=== PATIENT | female | born 1935 | race Caucasian/White ===

== ENCOUNTER 2018-09-26 14:48 | Emergency (ER) | payer MEDICARE, BC ==
[~2018-09-26] VITALS: Ht 154.9 cm; Wt 63.6 kg
[2018-09-26] MEDS ORDERED: MAXZIDE-2537.5 MG/TA PO (15:16)
[2018-09-26] MEDS ORDERED: ATENOLOL50 MG PO (15:16)
[2018-09-26] MEDS ORDERED: LISINOPRIL20 MG PO (15:16)
[2018-09-26] MEDS ORDERED: AMITRIPTYLIN25 MG PO (15:17)
[2018-09-26] MEDS ORDERED: ASPIRIN81 MG PO (15:17)
[2018-09-26] MEDS ORDERED: AMLODIPINE5 MG PO (15:17)
[2018-09-26 15:39] LABS: HEMATOCRIT 39.6 % (37.0-47.0); HEMOGLOBIN 14.1 g/dl (12.0-16.0); IMMATURE GRANULOCYTES 0.5 % (0.0-5.0); MEAN CORPUSCULAR HGB 31.3 pG CALC (26.0-32.0); MEAN CORPUSCULAR HGB CONC 35.6 g/L CALC (32.0-36.0); NEUT# 16.23 thou/uL (2.00-7.15); RED BLOOD COUNT 4.5 mill/uL (4.20-5.60); RED CELL DISTRI WIDTH 11.9 % (11.5-15.5)
[2018-09-26 15:58] LABS: PROTHROMBIN TIME 10.1 SECONDS (9.0-12.5)
[2018-09-26 16:44] LABS: ALBUMIN 4.2 g/dL (3.2-5.0); ALKALINE PHOSPHATASE 69 u/l (38-126); ANION GAP 16 (6-22 (CALC)); BILIRUBIN, TOTAL 0.4 mg/dL (0.0-1.4); BUN 14 mg/dL (8-23); BUN/CREATININE RATIO 25 (12-20 (CALC)); CARBON DIOXIDE 28 mmol/l (22-30); CHLORIDE 90 mmol/l (95-108); CREATININE 0.6 mg/dL (0.5-1.0); GFR > 60 ML/MIN (>=60 (CALC)); GFR FOR AFR.AMER. > 60 ML/MIN (>=60 (CALC)); POTASSIUM 3.1 mmol/l (3.5-5.1); SGOT/AST 29 u/l (9-36); SODIUM 131 mmol/l (137-146); TOTAL PROTEIN 6.8 g/dL (6.3-8.2)
[2018-09-26 16:46] LABS: URINE BILIRUBIN - DIPSTICK NEGATIVE (NEGATIVE); URINE BLOOD DIPSTICK MODERATE (NEGATIVE); URINE COLOR YELLOW; URINE GLUCOSE - DIPSTICK NEGATIVE (NEGATIVE); URINE KETONE NEGATIVE (NEGATIVE); URINE LEUK ESTERASE TRACE (NEGATIVE); URINE NITRITE - DIPSTICK NEGATIVE (Negative); URINE PROTEIN - DIPSTICK NEGATIVE (NEG-TRACE); URINE UROBILINOGEN - DIPSTICK 0.2 E.U./dL (0.2)
[2018-09-26 16:49] LABS: URINE CLARITY CLEAR
[2018-09-26 16:56] LABS: URINE SQUAMOUS EPITHELIAL CELL FEW EPI/hpf (0-FEW)
[2018-09-26] MEDS ORDERED: CIPROFLOXACN500 MG PO (19:02)
[2018-09-26] MEDS ORDERED: METRONIDAZOL500 MG PO (19:02)
[2018-09-26 19:10] VITALS: BP 140/71
== END 2018-09-26 19:21 | disposition home or self-care (01) ==
LOC: ED 14:48
PROVIDERS: Emergency Medicine
DX: K52.9 Noninfective gastroenteritis and colitis, unspecified (principal); K62.5 Hemorrhage of anus and rectum
CPT/HCPCS: Q9967